=== PATIENT | female | born 1990 | race African-American/Black ===

== ENCOUNTER 2017-08-03 14:40 | Emergency (ER) | payer OTHER ==
[2017-08-03 15:12] VITALS: BP 119/83
--- NOTE | 2017-08-03 15:46 | UC ---
Laceration HPI - HPI Summary HPI Summary: Patient present s/p left index finger laceration. She states she cut it on a food platter. She arrives with bleeding controlled, and report a stinging sensation on the cut. She denies any numbness or tingling. She states her immunization are up to date. - History Of Current Complaint Chief Complaint: UCUpperExtremity Stated Complaint: FINGER LAC Time Seen by Provider: 08/03/17 15:26 Hx Obtained From: Patient Laceration Location: Finger Mechanism Of Injury: Sharp Trauma Onset/Duration: Sudden Onset, Lasting Hours Severity: Mild Pain Intensity: 4 - Allergies/Home Medications Allergies/Adverse Reactions: Allergies Allergy/AdvReac Type Severity Reaction Status Date / Time No Known Allergies Allergy Unverified 08/03/17 15:12 PMH/Surg Hx/FS Hx/Imm Hx Previously Healthy: Yes - Surgical History Surgical History: Yes Surgery Procedure, Year, and Place: two benign tumors removed from breast - Family History Known Family History: Positive: None - Social History Occupation: Employed Full-time Lives: Alone Alcohol Use: Weekly Substance Use Type: None Smoking Status (MU): Never Smoked Tobacco Review of Systems Constitutional: Negative - finger laceration Skin: Other Eyes: Negative ENT: Negative Respiratory: Negative Cardiovascular: Negative Gastrointestinal: Negative Genitourinary: Negative Motor: Negative Neurovascular: Negative Musculoskeletal: Negative Neurological: Negative Psychological: Negative Is Patient Immunocompromised?: No All Other Systems Reviewed And Are Negative: Yes Physical Exam Triage Information Reviewed: Yes Appearance: Well-Appearing Vital Signs: Initial Vital Signs Temp 97.8 F 08/03/17 15:07 Pulse 82 08/03/17 15:07 Resp 16 08/03/17 15:07 BP 119/83 08/03/17 15:07 Pulse Ox 100 08/03/17 15:07 Eye Exam: Normal ENT Exam: Normal Dental Exam: Normal Neck exam: Normal Neck: Positive: 1 Respiratory Exam: Normal Cardiovascular Exam: Normal Musculoskeletal Exam: Normal Neurological Exam: Normal Skin: Positive: Other - left index finger, 1.5 cm laceration distal apsect volar side, involving the epithelial tissue only. No muscle, tendon, bone of foreign body noted. Patient denies foreign body sensation. Laceration Repair - Laceration Repair 1 Description: Linear Laceration Size After Repair: Length (cm) - 1.5 Cleansing Completed Via Routine Prep: Yes Irrigation With Pressure Irrigation Device: No Closure Material: Skin Adhesive Closure Method: Single Layer Laceration Course/Dx - Course/Dx Course Of Treatment: Patient presents with a superficial laceration of the left index finger. She is neuro-vasc intact. immunization are up to date. Options of closure were discussed and adhesive is appropriate given it is small, involves only the epithelial tissue and she can be splinted to prevent over use, or pressure to the area that would make it open. She prefers not to have any injections as she if afraid of needles. I discussed with her how to take care of the adhesive, to keep it clean and dry. She verbalized understanding of an in agreement with the discharge plan. - Differential Dx - Laceration/Wound Differental Diagnoses: Laceration Provider Diagnoses: laceration. skin adhesive closure Discharge - Sign-Out/Discharge Documenting (check all that apply): Discharge/Admit/Transfer - Discharge Plan Condition: Stable Disposition: HOME Patient Education Materials: Skin Adhesive Care (ED), Finger Laceration (ED) Referrals: Non Staff,Doctor [Primary Care Provider] - - Billing Disposition and Condition Condition: STABLE Disposition: HOME
== END 2017-08-03 15:56 | disposition home or self-care (01) ==
LOC: UCEAST 14:40
DX: S61.211A Laceration without foreign body of left index finger without damage to nail, initial encounter (principal); W26.8XXA Contact with other sharp object(s), not elsewhere classified, initial encounter; Y93.9 Activity, unspecified; Y92.9 Unspecified place or not applicable
CPT/HCPCS: 12001; 99201; G0463